=== PATIENT | male | born 1990 | race Caucasian/White ===

== ENCOUNTER 2021-08-10 13:45 | Emergency (ER) | payer OTHER ==
[~2021-08-10] VITALS: Ht 177.8 cm; Wt 86.4 kg
[2021-08-10] MEDS ORDERED: ZYRTEC-D TABLE1 EACH PO (14:01)
[2021-08-10] MEDS ORDERED: PROAIR DIGIHAL90 MCG IH (14:02)
[2021-08-10] MEDS ORDERED: CEPHALEXIN500 M2 PO (15:36)
[2021-08-10 15:56] VITALS: BP 130/80
== END 2021-08-10 16:02 | disposition home or self-care (01) ==
LOC: ED 13:45
DX: S66.222A Laceration of extensor muscle, fascia and tendon of left thumb at wrist and hand level, initial encounter (principal); Z23 Encounter for immunization; W26.8XXA Contact with other sharp object(s), not elsewhere classified, initial encounter; Y92.59 Other trade areas as the place of occurrence of the external cause; Y99.0 Civilian activity done for income or pay
CPT/HCPCS: 90715

== ENCOUNTER 2021-08-31 13:48 | Outpatient (RCR) | payer OTHER ==
[~2021-08-31 13:48] MED LIST: CEPHALEXIN500 M2 PO; PROAIR DIGIHAL90 MCG IH; ZYRTEC-D TABLE1 EACH PO
== END 2021-11-18 23:59 | disposition home or self-care (01) ==
LOC: PT 13:48
DX: S66.221D Laceration of extensor muscle, fascia and tendon of right thumb at wrist and hand level, subsequent encounter (principal); X58.XXXD Exposure to other specified factors, subsequent encounter

== ENCOUNTER 2021-11-22 14:30 | Outpatient (RCR) | payer OTHER | END 2021-12-19 13:00 | disposition home or self-care (01) | LOC: OT 14:30 → PT 16:19 → OT 12-19 13:00 | DX: S66.221A Laceration of extensor muscle, fascia and tendon of right thumb at wrist and hand level, initial encounter (principal) ==